=== PATIENT | female | born 1960 | race Caucasian/White ===

== ENCOUNTER → 2020-01-09 | Outpatient (CLI) | payer MEDICARE ==
[~2020-01-09] MED LIST: ALBU90OI INH; ALBU90OI61 INH; ALPR.25 PO; Acetaminophen-1 EAC1 PO; Amoxicillin875 MG PO; Bactrim Ds Tab1 EACH PO; CHEMO THERAPY; CITA20 PO; CLON1 PO; CLON2 PO; CODGUAEL PO; CYCL10 PO; Celexa PO; DULO60; FISH1000 PO; FLOVENT INH; Flonase 0.05% N16 GM; GABA300 PO; HYDACE5 PO; IBUP800 PO; LEVO-T50 MCG PO; LEVOTHYROXIN; LEVSOD50 PO; LIDO2L PO; LIDO2L TOP; METPRE4DP PO; NAPR500 PO; OXYACE5T PO; OXYB5 PO; PRAV20 PO; Pantoprazole So40 MG PO; Percocet 5-3251 EACH PO; Pravastatin Sod40 MG; Prilosec Otc20 MG PO; Protonix40 MG PO; QUET200 PO; RXOXYACE PO; Robaxin-750750 MG PO; TRAZ100 PO; TRAZ150T57 PO; TRAZ50 PO; VENL75ER PO; XANAX
[2020-01-09 21:10] LABS: Influenza A Negative (NEGATIVE); Influenza B Negative (NEGATIVE)
== END ==
LOC: LAB SHORT 14:00
PROVIDERS: Physician Assistant
DX: J06.9 Acute upper respiratory infection, unspecified (principal)
CPT/HCPCS: 87804

== ENCOUNTER 2023-08-04 14:44 | Emergency (ER) | payer OTHER ==
[~2023-08-04] VITALS: Ht 154.9 cm; Wt 84.4 kg
[2023-08-04 15:11] VITALS: BP 133/68
[2023-08-04] MEDS ORDERED: Bactrim Ds Tab1 EACH PO (16:03)
== END 2023-08-04 16:33 | disposition home or self-care (01) ==
LOC: ER 14:44
DX: S02.31XA Fracture of orbital floor, right side, initial encounter for closed fracture (principal); J45.909 Unspecified asthma, uncomplicated; E78.00 Pure hypercholesterolemia, unspecified; E07.9 Disorder of thyroid, unspecified; F17.210 Nicotine dependence, cigarettes, uncomplicated; Z79.82 Long term (current) use of aspirin; Z88.5 Allergy status to narcotic agent; Z88.7 Allergy status to serum and vaccine; Z91.012 Allergy to eggs; Z88.0 Allergy status to penicillin; Z88.8 Allergy status to other drugs, medicaments and biological substances; Z85.828 Personal history of other malignant neoplasm of skin; Z85.41 Personal history of malignant neoplasm of cervix uteri; W18.30XA Fall on same level, unspecified, initial encounter; Z79.899 Other long term (current) drug therapy; T79.7XXA Traumatic subcutaneous emphysema, initial encounter
CPT/HCPCS: 70450; 99283; A9270

== ENCOUNTER → 2024-05-26 | Outpatient (CLI) | payer OTHER ==
[2024-05-26 11:34] LABS: BASOPHILS ABSOLUTE AUTO 0.05 K/mm3 (0.00-0.23); BASOPHILS PERCENT AUTO 1 % (0-2); EOSINOPHILS ABSOLUTE AUTO 0.17 K/mm3 (0.00-0.68); EOSINOPHILS PERCENT AUTO 2 % (0-6); Hematocrit 39.8 % (33.0-51.0); Hemoglobin 13.1 g/dL (11.5-16.0); IMMATURE GRAN ABSOLUTE AUTO 0.03 K/mm3 (0.00-0.10); IMMATURE GRAN PERCENT AUTO 0 % (0-1); LYMPHOCYTES ABSOLUTE AUTO 1.26 K/mm3 (0.84-5.20); LYMPHOCYTES PERCENT AUTO 13 % (21-46); MONOCYTES ABSOLUTE AUTO 0.42 K/mm3 (0.16-1.47); MONOCYTES PERCENT AUTO 5 % (4-13); Mean Corpuscular HGB 31.6 pg (26.0-34.0); Mean Corpuscular HGB Conc 32.9 g/dL (31.5-36.5); Mean Corpuscular Volume 96 fL (80-100); Mean Platelet Volume 8.8 fL (9.1-12.4); NEUTROPHILS ABSOLUTE AUTO 7.47 K/mm3 (1.96-9.15); NEUTROPHILS PERCENT AUTO 80 % (41-73); Platelet Count 399 K/mm3 (150-400); RDW Standard Deviation 48.9 fL (35.1-46.3); Red Blood Cell Count 4.15 M/mm3 (3.80-5.20)
[2024-05-26 11:46] LABS: Albumin, Blood 3.4 g/dL (3.4-5.0); Albumin/Globulin Ratio 0.9 (0.8-1.8); Bilirubin, Total 0.3 mg/dL (0.1-1.0); Bun/Creatinine Ratio 13.3 (12.0-20.0); Creatinine, Blood 0.75 mg/dL (0.40-1.00); Globulin, Blood 3.9 g/dL (2.2-4.0); Potassium, Blood 4.2 mmol/L (3.5-5.5); Total Protein, Blood 7.3 g/dL (6.4-8.2)
== END | disposition home or self-care (01) ==
LOC: LAB SHORT 11:29
PROVIDERS: Physician Assistant
DX: R07.89 Other chest pain (principal)
CPT/HCPCS: 80053; 84484; 85025

== ENCOUNTER 2024-11-11 14:02 | Emergency (ER) | payer OTHER ==
[~2024-11-11] VITALS: Ht 154.9 cm; Wt 83.5 kg
[2024-11-11 14:23] VITALS: BP 166/78
[2024-11-11] MEDS ORDERED: Ketorolac Tromethamine 30mg Vial IM ONE (16:40)
== END 2024-11-11 16:51 | disposition home or self-care (01) ==
LOC: ER 14:02
DX: M16.12 Unilateral primary osteoarthritis, left hip (principal); E03.9 Hypothyroidism, unspecified; E78.00 Pure hypercholesterolemia, unspecified; J45.909 Unspecified asthma, uncomplicated; F32.A Depression, unspecified; F17.210 Nicotine dependence, cigarettes, uncomplicated; Z88.8 Allergy status to other drugs, medicaments and biological substances; Z88.5 Allergy status to narcotic agent; Z88.0 Allergy status to penicillin; Z88.7 Allergy status to serum and vaccine; Z91.012 Allergy to eggs; Z79.899 Other long term (current) drug therapy; Z79.890 Hormone replacement therapy
CPT/HCPCS: 72170; 96372; 99283-25; J1885

== ENCOUNTER 2024-12-04 05:47 | Day surgery (SDC) | payer OTHER ==
[~2024-12-04] VITALS: Ht 154.9 cm; Wt 81.4 kg
[2024-12-04] MEDS ORDERED: Lactated Ringer's 1,000 ML IV SCH (06:10)
[2024-12-04] MEDS ORDERED: Lactated Ringer's 1,000 ML IV ONE (06:26)
[2024-12-04] MEDS ORDERED: LISI5 PO (06:47)
[2024-12-04] MEDS ORDERED: CITALOPRAM HBR10 MG PO (06:48)
[2024-12-04] MEDS ORDERED: ABILIFY MYCITE5 M2 PO (06:48)
[2024-12-04 07:01] VITALS: BP 154/73
[2024-12-04] MEDS ORDERED: propofoL 20 ML IV ONE ×2 (07:17→07:47)
--- NOTE | 2024-12-04 07:41 | NUR ---
12/04/24 0741 Bri Abdalla 0732- History, Chart, Medications and Allergies reviewed before start of procedure.MONITOR INTACT WITH CONTINUOUS PULSE OXIMETRY, CONTINUOUS END TITAL CO2, AND INTERMITTENT BLOOD PRESSURE.3-LEAD EKG REVIEWED WITH PHYSICIAN PRIOR TO START OF PROCEDURE.O2 VIA POM INTACT THROUGHOUT SEDATION/PROCEDURE.Dr. Georges providing MAC-see anesthesia record.
[2024-12-04 08:08] VITALS: BP 184/77
[2024-12-04 08:27] VITALS: BP 179/77
--- NOTE | 2024-12-04 08:42 | NUR ---
Discharge instructions reviewed with patient. Patient verbalizes understanding. Copy given to patient to take home. Pt Hypertensive but did not take BP meds this morning, informed , he was ok to discharge with the instructions pt take Meds when she gets home, pt agreed. Patient States Post-Procedure ride home has been arranged. Discharged via wheelchair to private car for ride home.
== END 2024-12-04 08:40 | disposition home or self-care (01) ==
LOC: ORSCMMR 05:47 → ORD 07:30 → ORSCMMR 07:30
PROVIDERS: Internal Medicine Gastroenterology
PROC: 0DBN8ZX Excision of Sigmoid Colon, Via Natural or Artificial Opening Endoscopic, Diagnostic (ICD-10-PCS; principal; 2024-12-04 07:30)
DX: Z12.11 Encounter for screening for malignant neoplasm of colon (principal); K63.5 Polyp of colon; D12.5 Benign neoplasm of sigmoid colon; F32.A Depression, unspecified; E78.00 Pure hypercholesterolemia, unspecified; J44.9 Chronic obstructive pulmonary disease, unspecified; G47.30 Sleep apnea, unspecified; K21.9 Gastro-esophageal reflux disease without esophagitis; I10 Essential (primary) hypertension; E66.9 Obesity, unspecified; F17.210 Nicotine dependence, cigarettes, uncomplicated; Z68.33 Body mass index [BMI] 33.0-33.9, adult; Z79.899 Other long term (current) drug therapy
CPT/HCPCS: 88305; J2704; J7120

== ENCOUNTER 2024-12-22 08:51 | Emergency (ER) | payer OTHER ==
[~2024-12-22] VITALS: Ht 154.9 cm; Wt 83.5 kg
[~2024-12-22 08:51] MED LIST changes: +ABILIFY MYCITE5 M2 PO; +CITALOPRAM HBR10 MG PO; +LISI5 PO
[2024-12-22] MEDS ORDERED: Ketorolac Tromethamine 15mg Vial IM ONE ×2 (09:40→13:15)
[2024-12-22 12:20] VITALS: BP 170/129
== END 2024-12-22 13:48 | disposition home or self-care (01) ==
LOC: ER 08:51
DX: M16.12 Unilateral primary osteoarthritis, left hip (principal); F17.210 Nicotine dependence, cigarettes, uncomplicated; Z88.6 Allergy status to analgesic agent; Z88.5 Allergy status to narcotic agent; Z88.0 Allergy status to penicillin; Z88.7 Allergy status to serum and vaccine; Z79.811 Long term (current) use of aromatase inhibitors; Z79.899 Other long term (current) drug therapy
CPT/HCPCS: 73502; 96372; 99283-25; J1885

== ENCOUNTER 2025-01-12 14:33 | Observation (INO) | payer OTHER ==
[~2025-01-12] VITALS: Ht 154.9 cm; Wt 83.5 kg
[~2025-01-12 14:33] MED LIST changes: +PANT40 PO; -Pantoprazole So40 MG PO; -Pravastatin Sod40 MG; +Pravastatin Sod80 MG PO
[2025-01-12 15:45] LABS: BASOPHILS ABSOLUTE AUTO 0.05 K/mm3 (0.00-0.23); BASOPHILS PERCENT AUTO 1 % (0-2); EOSINOPHILS ABSOLUTE AUTO 0.16 K/mm3 (0.00-0.68); EOSINOPHILS PERCENT AUTO 2 % (0-6); Hematocrit 33.2 % (33.0-51.0); Hemoglobin 11.4 g/dL (11.5-16.0); IMMATURE GRAN ABSOLUTE AUTO 0.03 K/mm3 (0.00-0.10); IMMATURE GRAN PERCENT AUTO 0 % (0-1); LYMPHOCYTES ABSOLUTE AUTO 1.34 K/mm3 (0.84-5.20); LYMPHOCYTES PERCENT AUTO 17 % (21-46); MONOCYTES ABSOLUTE AUTO 0.36 K/mm3 (0.16-1.47); MONOCYTES PERCENT AUTO 5 % (4-13); Mean Corpuscular HGB Conc 34.3 g/dL (31.5-36.5); Mean Corpuscular Volume 90 fL (80-100); Mean Platelet Volume 9.8 fL (9.1-12.4); NEUTROPHILS ABSOLUTE AUTO 5.84 K/mm3 (1.96-9.15); NEUTROPHILS PERCENT AUTO 75 % (41-73); Platelet Count 345 K/mm3 (150-400); RDW Coefficient Variation 13.4 % (11.7-14.2); RDW Standard Deviation 44.5 fL (35.1-46.3); Red Blood Cell Count 3.68 M/mm3 (3.80-5.20); White Blood Cell Count 7.78 K/mm3 (4.00-11.30)
[2025-01-12 16:13] LABS: Albumin, Blood 2.9 g/dL (3.4-5.0); Bilirubin, Total 0.3 mg/dL (0.1-1.0); Bun/Creatinine Ratio 15.7 (12.0-20.0); Calcium, Blood 8.2 mg/dL (8.5-10.1); Creatinine, Blood 0.58 mg/dL (0.40-1.00); Potassium, Blood 4.4 mmol/L (3.5-5.5); Total Protein, Blood 5.9 g/dL (6.4-8.2)
[2025-01-12] MEDS ORDERED: HYDROmorphone HCl/Pf 1MG SYR IV ONE (17:35)
[2025-01-12] MEDS ORDERED: FLU VACC TS2024-25(6MOS UP)/PF 45 MCG/0.5 ML SYRINGE IM ONE (19:15)
[2025-01-12] MEDS ORDERED: Albuterol HFA200 ACT/6.7 GM INH INH PRN (19:25)
[2025-01-12] MEDS ORDERED: Furosemide 10 MG/ML 4ML Vial IV SCH (20:00)
[2025-01-12] MEDS ORDERED: CELEXA40 M1 PO (20:47)
[2025-01-12] MEDS ORDERED: Prinivil10 MG PO (20:48)
[2025-01-12] MEDS ORDERED: ARIPIPRAZOLE2 M1 PO (20:51)
[2025-01-12 20:59] VITALS: BP 126/66
[2025-01-12] MEDS ORDERED: Gabapentin 300 MG Cap PO SCH (21:00)
[2025-01-12] MEDS ORDERED: oxyBUTYnin chloride 5 MG TAB PO SCH (21:00)
--- NOTE | 2025-01-12 21:27 | NUR ---
PATIENT IS A NEW ADMIT FROM THE ED. ALERT AND ORIENTED. THREE ASSIST FROM GURNEY TO BED. ON ROOM AIR. DENIES CHEST PAIN, SOB, AND N/V. LAYNECK RESTARTED FROM ED PLACEMENT. TELE MONITOR REPORTS NSR 81. REPORTS LIVES WITH ROOMMATE IN [facility] IN [place]. ORIENTED TO ROOM AND CALL LIGHT SYSTEM. USING PHONE AFTER ASSESSMENT. WCTM.
[2025-01-13 00:26] VITALS: BP 140/78
[2025-01-13] MEDS ORDERED: Acetaminophen 325 MG TABLET PO PRN (00:45)
[2025-01-13] MEDS ORDERED: FentaNYL Citrate 50 MCG/ML 2 ML Injection IV PRN (00:45)
--- NOTE | 2025-01-13 04:02 | NUR ---
SHIFT SUMMARY PATIENT HAD NO ACUTE CHANGES. ALERT AND ORIENTED. DENIES CHEST PAIN, SOB, AND N/V. VSS/AFEBRILE. REPORTED BLE EDEMA PAIN AND HOSPITALIST DR ELAM ORDERED IV FENTANYL 50 MG Q4 PRN. PIVS INTACT. PUREWICK IN PLACE. TELE MONITOR NSR 81. SLEPT MOST OF THE SHIFT. CALL LIGHT IN REACH. BED IN LOWEST POSITION. WILL CONTINUE TO MONITOR UNTIL DAY SHIFT NURSE ASSUMES CARE.
[2025-01-13 04:12] VITALS: BP 139/64
[2025-01-13 05:27] LABS: Calcium, Blood 8.1 mg/dL (8.5-10.1); Creatinine, Blood 0.67 mg/dL (0.40-1.00); Magnesium, Blood 2.1 mg/dL (1.6-2.4)
[2025-01-13] MEDS ORDERED: Levothyroxine Sodium 0.05 MG Tab PO SCH (06:00)
[2025-01-13] MEDS ORDERED: Pantoprazole Sodium 40 MG Tab PO SCH (06:00)
[2025-01-13] MEDS ORDERED: Enoxaparin 40 MG/0.4 ML SYR SC SCH (09:00)
[2025-01-13] MEDS ORDERED: Sodium Chloride 1 GM TAB PO SCH ×2 (09:00→14:00)
[2025-01-13] MEDS ORDERED: Lisinopril 5 MG Tab PO SCH (09:00)
[2025-01-13] MEDS ORDERED: ARIPiprazole 5 MG Tab PO SCH (09:00)
[2025-01-13] MEDS ORDERED: Pravastatin Sodium 20 MG Tab PO SCH (09:00)
[2025-01-13] MEDS ORDERED: Citalopram Hydrobromide 10 MG TAB PO SCH (09:00)
[2025-01-13] MEDS ORDERED: Ibuprofen 400 MG Tab PO PRN (10:35)
[2025-01-13] MEDS ORDERED: HYDROmorphone HCl 0.5 MG/0.5 ML SYR IV PRN (10:35)
[2025-01-13] MEDS ORDERED: ARIPiprazole 5 MG Tab PO ONE (10:45)
--- NOTE | 2025-01-13 12:17 | NUR ---
1215- INFORMED MD SHUKLA OF POSSIBLE CELLULITIS ON PT'S LEFT ANKLE/FOOT. MD CAME TO BEDSIDE AND ASKED RN TO PLACE 500MG AUGMENTIN BID.
--- NOTE | 2025-01-13 12:37 | NUR ---
1230- MD SHUKLA INFORMED OF PT'S ALLERGY TO PENICILLIN. PT STATES, "I HAD A RASH REACTION ABOUT THIRTY YEARS AGO." GAYLA WANTS TO ORDER AUGENTIN 500MG BID.
[2025-01-13] MEDS ORDERED: Amoxicillin/Clavulanate K 500 MG Tab PO SCH (13:00)
--- NOTE | 2025-01-13 13:27 | NUR ---
1325- NOTIFIED PT REGARDING RISKS FOR AUGMENTIN. PT STATES SHE IS OKAY WITH TRIALING IT TODAY.
[2025-01-13 15:59] VITALS: BP 145/71
--- NOTE | 2025-01-13 18:50 | NUR ---
SUMMARY- PT AAOX4. PAIN IN LLE CONTROLLED WITH EMAR PAIN MEDS. X1 ASSIST. ON RA. NO ACUTE EVENTS THIS SHIFT.
[2025-01-13 19:17] VITALS: BP 157/64
[2025-01-13 23:30] VITALS: BP 128/68
[2025-01-14 04:02] VITALS: BP 155/84
--- NOTE | 2025-01-14 05:03 | NUR ---
SHIFT SUMMARY: PT A&O X4. MAKES NEEDS KNOWN. PT MEDICATED X1 FOR PAIN IN LLE PER EMAR ORDER; EFFECTIVE. X1 ASSIST. ON RA. CONTINUOUS PULSE OXIMETER INITIATED BY RT. NO ACUTE EVENTS THIS SHIFT. BED IN LOWEST POSITION. CALL LIGTH IN REACH. CARES ONGOING ORDERED.
[2025-01-14 05:04] LABS: BASOPHILS ABSOLUTE AUTO 0.02 K/mm3 (0.00-0.23); BASOPHILS PERCENT AUTO 0 % (0-2); EOSINOPHILS ABSOLUTE AUTO 0.22 K/mm3 (0.00-0.68); EOSINOPHILS PERCENT AUTO 4 % (0-6); Hemoglobin 11.5 g/dL (11.5-16.0); IMMATURE GRAN ABSOLUTE AUTO 0.04 K/mm3 (0.00-0.10); IMMATURE GRAN PERCENT AUTO 1 % (0-1); LYMPHOCYTES ABSOLUTE AUTO 1.25 K/mm3 (0.84-5.20); LYMPHOCYTES PERCENT AUTO 23 % (21-46); MONOCYTES ABSOLUTE AUTO 0.33 K/mm3 (0.16-1.47); MONOCYTES PERCENT AUTO 6 % (4-13); Mean Corpuscular HGB 30.7 pg (26.0-34.0); Mean Corpuscular HGB Conc 33.8 g/dL (31.5-36.5); Mean Corpuscular Volume 91 fL (80-100); Mean Platelet Volume 9.7 fL (9.1-12.4); NEUTROPHILS ABSOLUTE AUTO 3.49 K/mm3 (1.96-9.15); NEUTROPHILS PERCENT AUTO 65 % (41-73); Platelet Count 323 K/mm3 (150-400); RDW Coefficient Variation 13.6 % (11.7-14.2); RDW Standard Deviation 45.1 fL (35.1-46.3); Red Blood Cell Count 3.74 M/mm3 (3.80-5.20); White Blood Cell Count 5.35 K/mm3 (4.00-11.30)
[2025-01-14 05:30] LABS: Bun/Creatinine Ratio 17.8 (12.0-20.0); Calcium, Blood 8.4 mg/dL (8.5-10.1); Creatinine, Blood 0.62 mg/dL (0.40-1.00); Potassium, Blood 3.7 mmol/L (3.5-5.5)
[2025-01-14 07:06] VITALS: BP 134/69
[2025-01-14] MEDS ORDERED: ARIPiprazole 10 MG Tab PO SCH (09:00)
[2025-01-14 15:55] VITALS: BP 148/58
--- NOTE | 2025-01-14 18:49 | NUR ---
SUMMARY- AAOX3-4. ON RA THIS SHIFT. LLE PAIN WELL CONTROLLED WITH EMAR PAIN MEDS. X1 ASSIST TO CHAIR. NO ACUTE EVENTS THIS SHIFT. LUIS PLACED FOR 24 URINE COLLECTION.
[2025-01-14 19:38] VITALS: BP 137/61
[2025-01-14 20:14] LABS: Potassium, Blood 4.7 mmol/L (3.5-5.5)
[2025-01-14] MEDS ORDERED: Bumetanide 0.25 MG/ML 10ML Vial IV ONE (22:05)
[2025-01-15 05:16] VITALS: BP 134/56
[2025-01-15 06:01] LABS: Albumin, Blood 2.8 g/dL (3.4-5.0); Anion Gap 9 mmol/L (3-11); Blood Urea Nitrogen 18 mg/dL (8-24); CO2, Blood 32 mmol/L (21-32); Calcium, Blood 8.8 mg/dL (8.5-10.1); Chloride, Blood 87 mmol/L (98-108); Creatinine, Blood 0.72 mg/dL (0.40-1.00); Glomerular Filtration Rate 92 (60-); Glucose, Blood 95 mg/dL (70-99); Magnesium, Blood 1.9 mg/dL (1.6-2.4); Phosphorus, Blood 5.9 mg/dL (2.5-4.9); Potassium, Blood 4.7 mmol/L (3.5-5.5); Sodium, Blood 123 mmol/L (136-145); Uric Acid, Blood 4.4 mg/dL (2.6-6.0)
--- NOTE | 2025-01-15 06:06 | NUR ---
SHIFT SUMMARY PATIENT HAS BEEN SLEEPING INTERMITTANTLY TONIGHT. SHE IS AWAKE AT THIS TIME AND CROCHETING. SHE HAS BEEN MEDICATED FOR PAIN X2 ON THIS SHIFT WITH IV DILAUDID. PATIENT IS ORIENTED X3. SHE HAS HER CALL LIGHT WITHIN REACH. SAFETY PRECAUTIONS ARE BEING MAINTAINED.
[2025-01-15] MEDS ORDERED: Cosyntropin 0.25 MG / ML 1ML Vial IV ONE (07:45)
[2025-01-15 08:44] VITALS: BP 124/68
[2025-01-15] MEDS ORDERED: Sodium Chloride 1 GM TAB PO SCH (09:00)
[2025-01-15 10:46] LABS: Potassium, Blood 3.4 mmol/L (3.5-5.5)
--- NOTE | 2025-01-15 11:09 | NUR ---
LAB RESULTS CALLED TO DR FRANCIS PT LAB RESULTS FOR NA 123 AND K 3.[address] FRANCIS. TELEPHONE ORDERS OBTAINED FOR ONE TIME 20 KCL PO AND A ONE TIME 2G SODIUM CHORIDE TABLET PO. REPEAT LABS PLACED FOR 1600. DR. FRANCIS REQUESTING A CALL WITH RESULTS.
[2025-01-15] MEDS ORDERED: Potassium Chloride 10 Meq Tablet SA PO ONE (11:10)
[2025-01-15] MEDS ORDERED: Sodium Chloride 1 GM TAB PO ONE (11:10)
[2025-01-15 16:23] LABS: Potassium, Blood 4.4 mmol/L (3.5-5.5)
--- NOTE | 2025-01-15 16:28 | NUR ---
2918-CALL TO TITO THIS RN NOTIFIED MD FRANCIS OF PT'S SMWEBN=[phone] AND POTASSIUM=4.4 REQUESTED PER MD TO GIVE RESULTS BY 1700. RN LEFT MESSAGE.
[2025-01-15 16:55] VITALS: BP 111/63
--- NOTE | 2025-01-15 17:57 | NUR ---
SUMMARY- AAOX3-4. PT UP TO CHAIR X2 MEALS THIS SHIFT. REFUSED TO GET OOB FOR LUNCH. ON RA. SBA WITH WALKER. ADHERING TO 1L FLUID RESTRICTION. PAIN WELL CONTROLLED WITH EMAR MEDS. NO ACUTE EVENTS THIS SHIFT.
[2025-01-15 19:50] VITALS: BP 126/58
[2025-01-15 23:55] VITALS: BP 140/62
[2025-01-16 04:08] VITALS: BP 146/66
--- NOTE | 2025-01-16 04:16 | NUR ---
SHIFT SUMMARY PATIENT HAD NO ACUTE CHANGES. ALERT ORIENTED AND ONE ASSIST TO BSC. DENIES CHEST PAIN AND SOB. VSS/AFEBRILE. TELE MONITOR NSR 81. FLUID RESTRICTION 1,000 mL. REPORTED BLE PAIN X ONE AND IV DILAUDID 0.5 MG GIVEN PER EMAR. CALL LIGHT IN REACH. BED IN LOWEST POSITION. WILL CONTINUE TO MONITOR UNTIL DAY SHIFT NURSE ASSUMES CARE.
[2025-01-16 05:23] LABS: Hematocrit 35.2 % (33.0-51.0); Hemoglobin 11.7 g/dL (11.5-16.0)
[2025-01-16 05:48] LABS: Anion Gap 9 mmol/L (3-11); Blood Urea Nitrogen 18 mg/dL (8-24); Bun/Creatinine Ratio 23.8 (12.0-20.0); CO2, Blood 33 mmol/L (21-32); Calcium, Blood 8.9 mg/dL (8.5-10.1); Chloride, Blood 91 mmol/L (98-108); Creatinine, Blood 0.76 mg/dL (0.40-1.00); Glomerular Filtration Rate 86 (60-); Glucose, Blood 96 mg/dL (70-99); Magnesium, Blood 2.1 mg/dL (1.6-2.4); Phosphorus, Blood 4.5 mg/dL (2.5-4.9); Potassium, Blood 3.9 mmol/L (3.5-5.5); Sodium, Blood 129 mmol/L (136-145)
[2025-01-16 08:30] VITALS: BP 123/58
[2025-01-16] MEDS ORDERED: Lactobacil 2-S.Thermo-Bifido 1 1 Cap PO SCH (09:00)
[2025-01-16] MEDS ORDERED: Bumetanide 1 MG Tab PO SCH (09:00)
[2025-01-16] MEDS ORDERED: Potassium Chloride 10 Meq Tablet SA PO SCH (09:00)
[2025-01-16 13:04] VITALS: BP 114/52
[2025-01-16] MEDS ORDERED: HYDROmorphone HCl 2 MG Tab PO PRN (15:20)
[2025-01-16 15:35] VITALS: BP 130/54
--- NOTE | 2025-01-16 17:46 | NUR ---
INITIAL PALLIATIVE CARE VISIT: CONSULT RECEIVED BECAUSE PT WAS INTERESTED IN FILLING OUT AN ADVANCE DIRECTIVE. MET WITH PT IN HER ROOM. SHE IS SITTING UP IN CHAIR AT BEDSIDE REVIEWING AD PAPERWORK. PT ABLE TO PARTICIPATE IN MEANINGFUL CONVERSATION. EDUCATED PT ON ADVANCE DIRECTIVE PAPERWORK AND REQUIRED DOCUMENTATION. ALSO DISCUSSED FILLING OUT A POLST FORM AND EDUCATED PT ON CPR VS DNR MEASURES AND SELECTIVE VS COMFORT MEASURES. PT STATED SHE DID NOT WANT CPR OR TO BE PLACED ON VENTILATOR IF HER HEART STOPPED BUT WOULD WANT ANTIBIOTICS AND OTHER TREATMENT IF NECESSARY UNTIL HER HEART STOPPED. PT REPORTS SHE HAS L HIP PAIN. SHE IS TAKING ORAL DILAUDID AND SHE REPORTS IT IS EFFECTIVE IN MANAGING HER PAIN. PT DENIES ANY NAUSEA, CONSTIPATION, SOB. NOTIFIED DR. BOOTH PT WISHES TO BE DNR/POLST COMPLETED. DR. BOOTH GAVE ORDER TO CHANGE CODE STATUS TO DNR. DR. BOOTH SIGNED POLST. SENT COPY TO POLST REGISTRY, SENT COPY TO MEDICAL RECORDS AND GAVE ORIGINAL BACK TO PATIENT AND EDUCATED HER ON PLACING IN HOME WHERE EMS CAN FIND IT IF THEY ARE CALLED. PT GIULIANO.
--- NOTE | 2025-01-16 18:34 | NUR ---
SHIFT SUMMARY PATIENT STATES LIGHTHEADEDNESS COMES AND GOES WHILE STANDING. ORTHOSTATICS DONE THIS AFTERNOON WHICH WERE GOOD. PATIENT C/O PAIN TO LLE AND MEDICATED PER EMAR. SHE DOES REPORT PAIN LEVEL DECREASED FROM 8 TO 4 WITH ORAL DILAUDID WHILE WALKING, ALMOST ZERO WITH RESTING. SHE IS UP TO BATHROOM WITH FWW 1 PERSON ASSIST DUE TO THE LIGHTHEADEDNESS. SLIGHT TREMOR TO HANDS, PATIENT STATES SHE HAS HAD THIS FOR YEARS AND THAT IT IS CURRENTLY BETTER THAN HER NORMAL. BED IN LOW POSITION, CALL LIGHT IN REACH. SHE IS ABLE TO MAKE NEEDS KNOWN.
[2025-01-16 19:26] VITALS: BP 124/57
[2025-01-17 00:01] VITALS: BP 124/53
--- NOTE | 2025-01-17 04:04 | NUR ---
SHIFT SUMMARY PATIENT HAD NO ACUTE CHANGES. ALERT ORIENTED AND ONE ASSIST TO BR. DENIES CHEST PAIN, SOB, AND N/V. VSS/AFEBRILE. REPORTED BLE PAIN AND PO DILAUDID 2 MG GIVEN PER EMAR. FLUID RESTRICTIONS 1,000 MG. PIV INTACT. CALL LIGHT IN REACH. BED IN LOWEST POSITION. WILL CONTINUE TO MONITOR UNTIL DAY SHIFT NURSE ASSUMES CARE.
[2025-01-17 05:19] VITALS: BP 111/60
[2025-01-17 05:41] LABS: Hematocrit 31.4 % (33.0-51.0); Hemoglobin 10.7 g/dL (11.5-16.0)
[2025-01-17 06:23] LABS: Magnesium, Blood 1.9 mg/dL (1.6-2.4)
[2025-01-17 06:28] LABS: Albumin, Blood 2.8 g/dL (3.4-5.0); Anion Gap 10 mmol/L (3-11); Blood Urea Nitrogen 16 mg/dL (8-24); Bun/Creatinine Ratio 23.6 (12.0-20.0); CO2, Blood 29 mmol/L (21-32); Calcium, Blood 8.9 mg/dL (8.5-10.1); Chloride, Blood 92 mmol/L (98-108); Creatinine, Blood 0.68 mg/dL (0.40-1.00); Glomerular Filtration Rate 96 (60-); Glucose, Blood 110 mg/dL (70-99); Phosphorus, Blood 4.1 mg/dL (2.5-4.9); Potassium, Blood 3.9 mmol/L (3.5-5.5); Sodium, Blood 127 mmol/L (136-145)
[2025-01-17 07:35] VITALS: BP 132/65
[2025-01-17] MEDS ORDERED: Bumetanide 0.25 MG/ML 4ML ViaL IV SCH (09:00)
[2025-01-17] MEDS ORDERED: AMOCLA500 PO (11:32)
[2025-01-17] MEDS ORDERED: HYDMOR2 PO (11:32)
[2025-01-17] MEDS ORDERED: VISBIOME 112.51 EACH PO (11:33)
[2025-01-17] MEDS ORDERED: OXYB5 PO (11:33)
[2025-01-17] MEDS ORDERED: SODCHL1 PO (11:34)
[2025-01-17 11:54] VITALS: BP 139/69
[2025-01-17 12:28] LABS: Potassium, Blood 4.3 mmol/L (3.5-5.5)
[2025-01-17] MEDS ORDERED: BUME2 PO (13:47)
[2025-01-17] MEDS ORDERED: Celexa10 MG PO (13:47)
--- NOTE | 2025-01-17 14:53 | NUR ---
DC SUMMARY PT DC THIS SHIFT HOME WITH HOME HEALTH. DC INSTRUCTION GONE OVER WITH PT WHOM STATED UNDERSTANDING. HARD COPY FOR DILAUDID PLACED IN DC PACKET AND PT PLACED FOLDER IN BELONGINGS BAG. PT WAS ESCORTED OUT TO PRIVATE VEHICLE VIA WHEELCHAIR BY THIS NURSE.
== END 2025-01-17 14:31 | disposition home health service (06) ==
LOC: ER 14:33 → MEDS 14:34 → ERHOLD 14:34 → ER 14:34 → MEDS 14:34 → ERHOLD 14:35 → MEDS 14:35 → ERHOLD 20:53 → MEDS 20:53 → ENPENDDIS 01-17 11:25 → MEDS 01-17 14:31
PROVIDERS: Internal Medicine; Internal Medicine Nephrology; Nurse Practitioner Acute Care; Student in an Organized Health Care Education/Training Program; ADMIT Student in an Organized Health Care Education/Training Program
DX: E87.1 Hypo-osmolality and hyponatremia (principal); M79.89 Other specified soft tissue disorders; N17.9 Acute kidney failure, unspecified; E87.70 Fluid overload, unspecified; D64.9 Anemia, unspecified; M16.12 Unilateral primary osteoarthritis, left hip; I12.9 Hypertensive chronic kidney disease with stage 1 through stage 4 chronic kidney disease, or unspecified chronic kidney disease; N18.2 Chronic kidney disease, stage 2 (mild); L03.116 Cellulitis of left lower limb; G47.33 Obstructive sleep apnea (adult) (pediatric); E78.5 Hyperlipidemia, unspecified; K21.9 Gastro-esophageal reflux disease without esophagitis; E03.9 Hypothyroidism, unspecified; J45.909 Unspecified asthma, uncomplicated; F41.9 Anxiety disorder, unspecified; Z88.6 Allergy status to analgesic agent; Z88.5 Allergy status to narcotic agent; Z88.0 Allergy status to penicillin; Z88.7 Allergy status to serum and vaccine; Z88.8 Allergy status to other drugs, medicaments and biological substances; Z79.890 Hormone replacement therapy; Z79.899 Other long term (current) drug therapy
CPT/HCPCS: 36415; 71045; 80048; 80053; 80069; 80400; 82533; 83735; 83880; 83930; 83935; 84132; 84156; 84295; 84300; 84443; 84550; 85014; 85018; 85025; 93005; 93010; 93306; 93971; 94760; 94762; 96372; 96374; 96375; 96376; 99285-25; A9270; G0378; J0834; J1171; J1650; J1940; J3010

== ENCOUNTER → 2025-01-22 | Outpatient (CLI) | payer OTHER ==
[~2025-01-22] MED LIST changes: +AMOCLA500 PO; +ARIPIPRAZOLE2 M1 PO; +BUME2 PO; +CELEXA40 M1 PO; +Celexa10 MG PO; +HYDMOR2 PO; +Prinivil10 MG PO; +SODCHL1 PO; +VISBIOME 112.51 EACH PO
[2025-01-22 17:14] LABS: Protein, Urine Quantitative 7.8 mg/dL (0.0-11.9)
[2025-01-22 17:16] LABS: Microalbumin, Urine Quant. <5.000 mg/L (0.000-20.000)
== END | disposition home or self-care (01) ==
LOC: LAB SHORT 14:04 → LAB 14:04
PROVIDERS: Internal Medicine Nephrology
DX: N18.30 Chronic kidney disease, stage 3 unspecified (principal); D63.1 Anemia in chronic kidney disease; N13.30 Unspecified hydronephrosis; R32 Unspecified urinary incontinence; R76.9 Abnormal immunological finding in serum, unspecified; R94.5 Abnormal results of liver function studies; R94.6 Abnormal results of thyroid function studies
CPT/HCPCS: 81050; 82043; 82570; 84156